=== PATIENT | female | born 1975 | race African-American/Black ===

== ENCOUNTER 2022-01-22 04:53 | Day surgery (SDC) | payer BC ==
[2022-01-21 13:55] VITALS: BMI 21.4
[2022-01-22 07:41] VITALS: TEMP 97.4
[2022-01-22 09:23] VITALS: BP 113/53; PULSE 62; RESP 19
== END 2022-01-22 09:37 | disposition home or self-care (01) ==
LOC: JASU-ENDO 04:53
PROVIDERS: ATTEND Student in an Organized Health Care Education/Training Program
PROC: 0DBM8ZX Excision of Descending Colon, Via Natural or Artificial Opening Endoscopic, Diagnostic (ICD-10-PCS; 2022-01-22)
PROC: 0DBP8ZX Excision of Rectum, Via Natural or Artificial Opening Endoscopic, Diagnostic (ICD-10-PCS; principal; 2022-01-22 08:00)
DX: Z12.11 Encounter for screening for malignant neoplasm of colon (principal); D12.8 Benign neoplasm of rectum; K64.0 First degree hemorrhoids; K64.8 Other hemorrhoids; K63.5 Polyp of colon
CPT/HCPCS: 81025; 88305-TC